=== PATIENT | female | born 1980 | race Caucasian/White ===

== ENCOUNTER 2016-04-06 00:13 | Inpatient (IN) | payer OTHER, SELFPAY ==
[~2016-04-06] VITALS: Ht 157.5 cm; Wt 85.3 kg
[2016-04-06] MEDS ORDERED: OXYTOCIN/NORMAL SALINE 1,000 ML IV SCH ×2 (00:59→10:03)
[2016-04-06] MEDS ORDERED: LR 1,000 ML IV SCH (00:59)
[2016-04-06] MEDS ORDERED: NALBUPHINE HCL 10 MG/ML AMP IVP PRN (01:00)
[2016-04-06] MEDS ORDERED: TERBUTALINE SULFATE 1 MG/ML VIAL SUBCUT ONE (01:00)
[2016-04-06 02:33] LABS: BASOPHILS # (AUTO) 0.1 K/uL (0.0-0.2); BASOPHILS % (AUTO) 0.6 % (0.0-2.0); EOSINOPHILS # (AUTO) 0.1 K/uL (0.0-0.4); HEMATOCRIT 39.3 % (36-48); HEMOGLOBIN 13.4 g/dL (12.0-16.0); LYMPHOCYTES % (AUTO) 22.1 % (20.5-51.5); MEAN CORPUSCULAR HEMOGLOBIN 31 pg (27-31); MEAN CORPUSCULAR HGB CONC 34 % (32-36); MEAN CORPUSCULAR VOLUME 91 fL (79.0-98.0); MONOCYTES # (AUTO) 0.6 K/uL (0.0-1.0); MONOCYTES % (AUTO) 6.9 % (1.7-9.3); NEUTROPHILS # (AUTO) 6.4 K/uL (1.8-7.7); NEUTROPHILS % (AUTO) 69.4 % (40.0-70.0); PLATELET COUNT (AUTO) 171 K/uL (130-430); RED BLOOD CELL COUNT(AUTO) 4.33 MIL/uL (4.2-6.2); RED CELL DISTRIBUTION WIDTH 12.4 % (9.0-15.0); WHITE BLOOD COUNT (AUTO) 9.2 K/uL (4.8-10.8)
[2016-04-06] MEDS ORDERED: OXYTOCIN/NORMAL SALINE 1,000 ML IV ONE (10:03)
[2016-04-06] MEDS ORDERED: MEASLES,MUMPS&RUBELLA VACC/PF 12500 UNIT/0.5 ML VIAL SUBQ PRN (10:15)
[2016-04-06] MEDS ORDERED: LANOLIN 7 GM OINT. TP PRN (10:15)
[2016-04-06] MEDS ORDERED: METHYLERGONOVINE MALEATE 0.2 MG TABLET PO PRN (10:15)
[2016-04-06] MEDS ORDERED: OXYCODONE/ACETAMINOPHEN 5-325 TABLET PO PRN ×2 (10:15)
[2016-04-06] MEDS ORDERED: DERMOPLAST SPRAY TP PRN (10:15)
[2016-04-06] MEDS ORDERED: HYDROCORTISONE 0.5%, 28.35 GM TOPICAL CREAM TP PRN (10:15)
[2016-04-06] MEDS ORDERED: GLYCERIN/WITCH HAZEL (TUCKS PADS) TP PRN (10:15)
[2016-04-06] MEDS ORDERED: DOCUSATE SODIUM 100 MG CAPSULE PO PRN (10:15)
[2016-04-06] MEDS ORDERED: ANUSOL 1 EA SUPP.RECT (PREPARATION H) RC PRN (10:15)
[2016-04-06] MEDS ORDERED: SENNOSIDES/DOCUSATE SODIUM 1 TAB TABLET(SENOKOT-S) PO PRN (10:15)
[2016-04-06] MEDS ORDERED: RHO(D) IMMUNE GLOBULIN/MALTOSE 1500 UNITS/1.3 ML (WINHRO) IM PRN (10:15)
[2016-04-06] MEDS ORDERED: ACETAMINOPHEN 325 MG TABLET PO PRN (10:15)
[2016-04-06] MEDS: IBUPROFEN 600 MG TABLET PO SCH ×3 (12:21→23:24)
[2016-04-06] MEDS ORDERED: LIDOCAINE PF 1% 30ML(POUR BTL) INJ ONE (15:00)
[2016-04-07] MEDS: IBUPROFEN 600 MG TABLET PO SCH ×2 (06:01→12:33)
[2016-04-07 06:43] LABS: HEMATOCRIT 33.3 % (36-48); HEMOGLOBIN 11.2 g/dL (12.0-16.0)
== END 2016-04-07 14:10 | disposition home or self-care (01) | DRG 775 ==
LOC: SPU 00:13 → EDBD 00:13 → SPU 01:22
PROVIDERS: ADMIT Obstetrics & Gynecology; ATTEND Obstetrics & Gynecology
PROC: 10E0XZZ Delivery of Products of Conception, External Approach (ICD-10-PCS; principal; 2016-04-06)
DX: O70.0 First degree perineal laceration during delivery (principal); Z3A.39 39 weeks gestation of pregnancy; Z37.0 Single live birth
CPT/HCPCS: 36415; 81002-TC; 85018-TC; 85025; 86592; 86886; 86900; 86901; J2001; J2300; J2590; J7120